=== PATIENT | female | born 1955 | race African-American/Black ===

== ENCOUNTER 2023-11-13 18:06 | Emergency (ER) | payer OTHER, MEDICAID ==
[~2023-11-13] VITALS: Ht 162.6 cm; Wt 111.1 kg
[2023-11-13 18:23] VITALS: O2SAT 100
[2023-11-13 19:39] LABS: BASOPHILS % 0.6 % (0.0-2.0); EOSINOPHILS % 0.9 % (0.0-5.0); HEMATOCRIT. 38.6 % (36.0-48.0); HEMOGLOBIN. 12.4 g/dL (12.0-16.0); LYMPHOCYTES % 22.1 % (20.0-50.0); MEAN CORPUSCULAR HEMOGLOBIN 26.6 pg (28.0-32.0); MEAN PLATELET VOLUME 8.2 fl (7.4-10.4); MONOCYTES % 8.4 % (2.0-8.0); PLATELET 285 x1000/uL (130-400); RED BLOOD CELL COUNT 4.66 mill/uL (4.2-5.4); RED CELL DISTRIBUTION WIDTH 15.2 % (11.6-14.6); WHITE BLOOD COUNT 12.9 x1000/uL (4.5-11.0)
[2023-11-13 19:45] LABS: CHLORIDE 107 mEq/L (98-107); POTASSIUM 4.1 mEq/L (3.5-5.1); SODIUM 140 mEq/L (136-145)
[2023-11-13 19:46] LABS: CARBON DIOXIDE 26 mEq/L (21-32)
[2023-11-13 19:51] LABS: CREATININE 0.7 mg/dL (0.6-1.0); GLUCOSE 95 mg/dL (70-105); INR 0.9; PARTIAL THROMBOPLASTIN TIME 30.4 sec (23.4-31.0); PROTHROMBIN TIME 10.5 sec (9.6-11.0)
[2023-11-13 19:52] LABS: UREA NITROGEN BLOOD 8 mg/dL (9-23)
[2023-11-13 19:53] LABS: ALANINE AMINOTRANSFERASE 19 IU/L (10-49); ALBUMIN 4.3 g/dL (3.2-4.8); ASPARTATE AMINOTRANSFERASE 44 IU/L (<34)
[2023-11-13 19:54] LABS: BILIRUBIN TOTAL 0.8 mg/dL (0.1-1.0); PROTEIN TOTAL 7.6 g/dL (6.0-8.3)
[2023-11-13 20:03] LABS: TROPONIN I HIGH SENSITIVITY 343 ng/L (3.0-34)
[2023-11-13] MEDS: METHYLPREDNISOLONE SOD SUCC 125MG/2ML (ACT-O-VIAL) IV ONE (20:05)
[2023-11-13] MEDS: EPINEPHRINE 1:1000 1 MG/ML AMP IM ONE (20:05)
[2023-11-13] MEDS: FAMOTIDINE 20MG/2ML VIAL IV ONE (20:05)
[2023-11-13] MEDS: DIPHENHYDRAMINE 50MG/ML VIAL IV ONE (20:05)
[2023-11-13] MEDS: ASPIRIN 325MG EC TABLET PO ONE (22:06)
[2023-11-13] MEDS ORDERED: CLINDAMYCIN 600 MG in DEXTROSE 5% WATER 50 ML IV ONE (23:15)
[2023-11-13 23:48] LABS: TROPONIN I HIGH SENSITIVITY 215 ng/L (3.0-34)
[2023-11-13] MEDS: CLINDAMYCIN 600MG PREMIX 50 ML IV NR (23:58)
[2023-11-14] MEDS: IOHEXOL-350 100 ML BOTTLE ONE (00:07)
[2023-11-14 01:20] LABS: CLARITY URINE CLEAR (CLEAR); COLOR URINE YELLOW (YELLOW); GLUCOSE URINE NEGATIVE (NEGATIVE); KETONES URINE NEGATIVE (NEGATIVE); LEUKOCYTE ESTERASE URINE NEGATIVE (NEGATIVE); NITRITE URINE POSITIVE (NEGATIVE); OCCULT BLOOD URINE TRACE (NEGATIVE); PH URINE 5.5 (4.5-8.0); PROTEIN URINE TRACE (NEGATIVE); UROBILINOGEN URINE 0.2 E.U./dL (0.2-1.0)
[2023-11-14 01:30] VITALS: BP 146/77; PULSE 105; RESP 16; TEMP 98.4
[2023-11-14 01:38] LABS: BACTERIA URINE 1+; CALCIUM OXALATE CRYSTALS URINE 1+ /lpf; MUCUS URINE 1+ /lpf (< = 2+); SQUAMOUS EPITHELIAL CELL URINE 2+ /lpf (RARE/1+)
== END 2023-11-14 02:02 | disposition short-term general hospital (02) ==
LOC: ER 18:06
DX: R79.89 Other specified abnormal findings of blood chemistry (principal); I11.0 Hypertensive heart disease with heart failure; I50.9 Heart failure, unspecified; Z86.73 Personal history of transient ischemic attack (TIA), and cerebral infarction without residual deficits
CPT/HCPCS: 80053; 81003; 83880; 85025; 85610; 85730; 84484; 36415; 71045; 70496; 70498; 70450; 93005; 96365; 96366; 96372; 96375; 99285; Q9967; J1200; J3490 ×3; J2930; J7060